=== PATIENT | male | born 2000 | race Caucasian/White ===

== ENCOUNTER 2022-10-26 14:30 | Emergency (ER) | payer SELFPAY ==
[2022-10-26] MEDS ORDERED: Acetaminophen/Codeine 120-12 MG/5 ML Soln 5 ML UD Cup PO ONE (15:01)
[2022-10-26 16:21] LABS: CORONAVIRUS COVID-19 NAA NEGATIVE (NEGATIVE); INFLUENZA A NAA POSITIVE (NEGATIVE); INFLUENZA B NAA NEGATIVE (NEGATIVE); RESPIRATORY SYNCYTIAL VIR NAA NEGATIVE (NEGATIVE)
== END 2022-10-26 16:43 | disposition home or self-care (01) ==
LOC: MW.ED 14:30
DX: J10.1 Influenza due to other identified influenza virus with other respiratory manifestations (principal); Z20.822 Contact with and (suspected) exposure to COVID-19; Z91.030 Bee allergy status
CPT/HCPCS: 0241U; 87651; 99284